=== PATIENT | female | born 2000 | race Hispanic/Latino ===

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

== ENCOUNTER 2022-02-07 15:15 | Emergency (ER) | payer MEDICAID ==
[~2022-02-07] VITALS: Ht 154.9 cm; Wt 81.6 kg
[2022-02-07 15:40] LABS: BASOPHILS % (AUTO) 0.4 % (0.0-5.0); HEMATOCRIT 38.1 % (36-48); LYMPHOCYTES % (AUTO) 27.6 % (21.0-51.0); MEAN CORPUSCULAR HEMOGLOBIN 25.4 pg (27.0-33.0); MEAN CORPUSCULAR HGB CONC 31.8 g/dL (32.0-36.0); MEAN CORPUSCULAR VOLUME 79.9 fL (80-100); MONOCYTES % (AUTO) 9.5 % (3.0-13.0); NEUTROPHILS % (AUTO) 61.1 % (40.0-77.0); PLATELET COUNT (AUTO) 353 K/uL (130-400); RED BLOOD CELL COUNT(AUTO) 4.77 MIL/uL (4.00-5.50); RED CELL DISTRIBUTION WIDTH 13.8 % (11.0-15.5); WHITE BLOOD COUNT (AUTO) 8.1 K/uL (4.8-10.8)
[2022-02-07 15:50] LABS: CREATININE 0.8 mg/dL (0.5-1.5); POTASSIUM 3.7 mmol/L (3.5-5.1)
[2022-02-07 15:54] LABS: ALBUMIN 3.6 g/dL (3.5-5.0); TOTAL PROTEIN, SERUM 7.9 g/dL (6.0-8.3)
[2022-02-07 17:54] LABS: APPEARANCE,URINE Clear (CLEAR); BILIRUBIN,URINE Moderate (NEGATIVE); COLOR,URINE Dark Yellow (YELLOW); GLUCOSE, URINE (UA) Negative (NEGATIVE); KETONES,URINE Trace mg/dL (NEGATIVE); LEUKOCYTE ESTERASE ,URINE Small (NEGATIVE); NITRATE,URINE Negative (NEGATIVE); OCCULT BLOOD,URINE Large (NEGATIVE); PROTEIN,URINE POS 1+ mg/dL (NEGATIVE)
[2022-02-07 17:56] LABS: AMPHET/METH SCREEN,URINE NEGATIVE (NEGATIVE); BARBITURATE SCREEN, URINE NEGATIVE (NEGATIVE); BENZODIAZEPINES SCREEN,URINE NEGATIVE (NEGATIVE); CANNABINOID SCREEN,URINE NEGATIVE (NEGATIVE); COCAINE SCREEN,URINE NEGATIVE (NEGATIVE); OPIATE SCREEN,URINE NEGATIVE (NEGATIVE); PHENCYCLIDINE SCREEN,URINE NEGATIVE (NEGATIVE)
[2022-02-07 17:57] LABS: HCG,QUAL RESULT NEGATIVE (NEGATIVE)
[2022-02-07] MEDS ORDERED: MAG/ALUM/SIMETH 30 ML UDCUP PO ONE (18:00)
[2022-02-07] MEDS ORDERED: FAMOTIDINE 20MG TAB PO ONE (18:00)
[2022-02-07] MEDS ORDERED: LIDOCAINE HCL 2% VISCOUS 15 ML UDCUP PO ONE (18:00)
[2022-02-07 18:05] VITALS: BP 119/72
[2022-02-07] MEDS ORDERED: OMEP20TA20 PO (18:41)
[2022-02-07] MEDS ORDERED: FAMO-136 PO (18:41)
[2022-02-07 18:42] LABS: BACTERIA,URINE Rare /HPF (None Seen); MUCUS,URINE Few LPF (None Seen); SQUAMOUS EPITHELIAL CELL,UR Few /HPF (0-2)
== END 2022-02-07 19:18 | disposition home or self-care (01) ==
LOC: EDH 15:15
DX: K29.70 Gastritis, unspecified, without bleeding (principal)
CPT/HCPCS: 36415; 80053; 80305; 81001; 81025; 83690; 85025

== ENCOUNTER 2022-04-28 20:57 | Emergency (ER) | payer MEDICAID ==
[~2022-04-28] VITALS: Ht 154.9 cm; Wt 53.1 kg
[~2022-04-28 20:57] MED LIST: FAMO-136 PO; OMEP20TA20 PO
[2022-04-28 21:28] LABS: APPEARANCE,URINE SL CLOUDY (CLEAR); BILIRUBIN,URINE SMALL (NEGATIVE); COLOR,URINE YELLOW (YELLOW); GLUCOSE, URINE (UA) NEGATIVE (NEGATIVE); KETONES,URINE 5 mg/dL (NEGATIVE); LEUKOCYTE ESTERASE ,URINE MODERATE (NEGATIVE); NITRATE,URINE NEGATIVE (NEGATIVE); OCCULT BLOOD,URINE NEGATIVE (NEGATIVE); PH,URINE 7.5 (5.0-8.0); PROTEIN,URINE TRACE mg/dL (NEGATIVE)
[2022-04-28 21:33] LABS: HCG,QUALITATIVE URINE NEGATIVE (NEGATIVE)
[2022-04-28 21:38] LABS: BASOPHILS % (AUTO) 0.4 % (0.0-5.0); EOSINOPHILS % (AUTO) 0.2 % (0.0-8.0); HEMATOCRIT 36.9 % (36-48); LYMPHOCYTES % (AUTO) 16.6 % (21.0-51.0); MEAN CORPUSCULAR HEMOGLOBIN 25.3 pg (27.0-33.0); MEAN CORPUSCULAR HGB CONC 31.7 g/dL (32.0-36.0); MEAN CORPUSCULAR VOLUME 79.7 fL (80-100); MONOCYTES % (AUTO) 4.6 % (3.0-13.0); NEUTROPHILS % (AUTO) 77.8 % (40.0-77.0); PLATELET COUNT (AUTO) 342 K/uL (130-400); RED BLOOD CELL COUNT(AUTO) 4.63 MIL/uL (4.00-5.50); RED CELL DISTRIBUTION WIDTH 14.6 % (11.0-15.5); WHITE BLOOD COUNT (AUTO) 10.5 K/uL (4.8-10.8)
[2022-04-28 21:44] LABS: BACTERIA,URINE Few /HPF (None Seen); RBC,URINE 0-1 /HPF (0-1); SQUAMOUS EPITHELIAL CELL,UR Few /HPF (0-2)
[2022-04-28 21:45] LABS: MUCUS,URINE Moderate LPF (None Seen)
[2022-04-28 21:53] LABS: ALBUMIN 3.6 g/dL (3.5-5.0); POTASSIUM 3.6 mmol/L (3.5-5.1); TOTAL PROTEIN, SERUM 7.7 g/dL (6.0-8.3)
[2022-04-28] MEDS ORDERED: LIDOCAINE HCL 1% 20 ML VIAL ONE (21:55)
[2022-04-28] MEDS ORDERED: FAMOTIDINE 20MG TAB PO ONE (22:00)
[2022-04-28] MEDS ORDERED: MAG/ALUM/SIMETH 30 ML UDCUP PO ONE (22:00)
[2022-04-28] MEDS ORDERED: DICYCLOMINE HCL 10 MG/5 ML ML PO ONE (22:00)
[2022-04-28] MEDS ORDERED: ONDANSETRON 4MG TABLET PO ONE (22:00)
[2022-04-28] MEDS ORDERED: LIDOCAINE HCL 2% VISCOUS 15 ML UDCUP PO ONE (22:00)
[2022-04-28] MEDS ORDERED: CEFTRIAXONE 1G VIAL IM ONE (22:00)
[2022-04-28 22:42] VITALS: BP 117/69
[2022-04-28] MEDS ORDERED: FAMO-136 PO (22:57)
[2022-04-28] MEDS ORDERED: DICY20TA2 PO (22:57)
== END 2022-04-28 23:07 | disposition home or self-care (01) ==
LOC: EDH 20:57
DX: K29.70 Gastritis, unspecified, without bleeding (principal); R79.89 Other specified abnormal findings of blood chemistry; Z79.899 Other long term (current) drug therapy
CPT/HCPCS: 99284; 76705; 80053; 83690; 85025; 87088; 81001; 81025; 36415; 96372; Q0162; J0696

== ENCOUNTER 2022-08-11 21:13 | Emergency (ER) | payer MEDICAID ==
[~2022-08-11] VITALS: Ht 154.9 cm; Wt 77.1 kg
[2022-08-11 21:54] LABS: APPEARANCE,URINE CLEAR (CLEAR); BILIRUBIN,URINE NEGATIVE (NEGATIVE); COLOR,URINE YELLOW (YELLOW); GLUCOSE, URINE (UA) NEGATIVE (NEGATIVE); KETONES,URINE NEGATIVE (NEGATIVE); LEUKOCYTE ESTERASE ,URINE 75 Leu/uL (NEGATIVE); NITRATE,URINE NEGATIVE (NEGATIVE); OCCULT BLOOD,URINE NEGATIVE (NEGATIVE); PROTEIN,URINE 20 mg/dL (NEGATIVE); UROBILINOGEN,URINE 0.2 mg/dL (0.2-1.0)
[2022-08-11 21:58] LABS: BACTERIA,URINE RARE /HPF (None Seen); MUCUS,URINE MOD LPF (None Seen); SQUAMOUS EPITHELIAL CELL,UR FEW /HPF (0-2)
[2022-08-11 22:01] LABS: BASOPHILS % (AUTO) 0.3 % (0.0-5.0); EOSINOPHILS % (AUTO) 0.2 % (0.0-8.0); HEMATOCRIT 36.9 % (36-48); LYMPHOCYTES % (AUTO) 15.7 % (21.0-51.0); MEAN CORPUSCULAR HEMOGLOBIN 25.4 pg (27.0-33.0); MEAN CORPUSCULAR HGB CONC 31.7 g/dL (32.0-36.0); MEAN CORPUSCULAR VOLUME 80.2 fL (80-100); MONOCYTES % (AUTO) 6.7 % (3.0-13.0); NEUTROPHILS % (AUTO) 76.8 % (40.0-77.0); PLATELET COUNT (AUTO) 359 K/uL (130-400); RED CELL DISTRIBUTION WIDTH 14.4 % (11.0-15.5); WHITE BLOOD COUNT (AUTO) 11.6 K/uL (4.8-10.8)
[2022-08-11 22:11] LABS: CREATININE 0.8 mg/dL (0.5-1.5); POTASSIUM 4.1 mmol/L (3.5-5.1)
[2022-08-11 22:15] LABS: ALBUMIN 3.8 g/dL (3.5-5.0); TOTAL PROTEIN, SERUM 7.9 g/dL (6.0-8.3)
[2022-08-11 23:00] VITALS: BP 124/85
[2022-08-11] MEDS ORDERED: ONDANSETRON 4MG INJ IVP ONE (23:00)
[2022-08-11] MEDS ORDERED: MORPHINE 2 MG SYG IVP ONE (23:00)
[2022-08-11] MEDS ORDERED: 0.9%NACL 1000ML 1,000 ML IV ONE (23:00)
[2022-08-11] MEDS ORDERED: 0.9%NACL 1000ML IV ONE (23:00)
[2022-08-12] MEDS ORDERED: FAMO-136 PO (00:01)
== END 2022-08-12 01:22 | disposition home or self-care (01) ==
LOC: EDH 21:13
DX: K76.0 Fatty (change of) liver, not elsewhere classified (principal); R94.5 Abnormal results of liver function studies; R16.0 Hepatomegaly, not elsewhere classified; K21.9 Gastro-esophageal reflux disease without esophagitis; Z87.19 Personal history of other diseases of the digestive system
CPT/HCPCS: 99285; 96374; 74150; 96361; 96375; 80053; 83690; 85025; 87088; 81001; 81025; 36415; J7030; J2405

== ENCOUNTER 2022-08-14 17:20 | Emergency (ER) | payer MEDICAID ==
[~2022-08-14] VITALS: Ht 160 cm; Wt 79.4 kg
[~2022-08-14 17:20] MED LIST changes: -OMEP20TA20 PO
[2022-08-14] MEDS ORDERED: ONDANSETRON 4MG INJ IVP ONE (18:30)
[2022-08-14] MEDS ORDERED: PANTOPRAZOLE 40 MG/VIAL IVP ONE (18:30)
[2022-08-14 18:36] LABS: BASOPHILS % (AUTO) 0.3 % (0.0-5.0); EOSINOPHILS % (AUTO) 0.4 % (0.0-8.0); HEMATOCRIT 35.9 % (36-48); LYMPHOCYTES % (AUTO) 21.6 % (21.0-51.0); MEAN CORPUSCULAR HEMOGLOBIN 25.5 pg (27.0-33.0); MEAN CORPUSCULAR HGB CONC 30.9 g/dL (32.0-36.0); MEAN CORPUSCULAR VOLUME 82.3 fL (80-100); MONOCYTES % (AUTO) 7.9 % (3.0-13.0); NEUTROPHILS % (AUTO) 69.5 % (40.0-77.0); PLATELET COUNT (AUTO) 315 K/uL (130-400); RED BLOOD CELL COUNT(AUTO) 4.36 MIL/uL (4.00-5.50); RED CELL DISTRIBUTION WIDTH 14.5 % (11.0-15.5); WHITE BLOOD COUNT (AUTO) 10.4 K/uL (4.8-10.8)
[2022-08-14 18:39] LABS: APPEARANCE,URINE CLEAR (CLEAR); BILIRUBIN,URINE NEGATIVE (NEGATIVE); COLOR,URINE LIGHT-YELLOW (YELLOW); GLUCOSE, URINE (UA) NEGATIVE (NEGATIVE); KETONES,URINE 10 mg/dL (NEGATIVE); LEUKOCYTE ESTERASE ,URINE NEGATIVE Leu/uL (NEGATIVE); NITRATE,URINE NEGATIVE (NEGATIVE); OCCULT BLOOD,URINE NEGATIVE (NEGATIVE); PROTEIN,URINE NEGATIVE (NEGATIVE); UROBILINOGEN,URINE 0.2 mg/dL (0.2-1.0)
[2022-08-14 18:42] LABS: HCG,QUALITATIVE URINE NEGATIVE (NEGATIVE)
[2022-08-14 18:48] LABS: CREATININE 0.9 mg/dL (0.5-1.5); POTASSIUM 3.4 mmol/L (3.5-5.1)
[2022-08-14 18:53] LABS: ALBUMIN 3.8 g/dL (3.5-5.0); TOTAL PROTEIN, SERUM 7.8 g/dL (6.0-8.3)
[2022-08-14 19:11] LABS: BACTERIA,URINE RARE /HPF (None Seen); MUCUS,URINE RARE LPF (None Seen); SQUAMOUS EPITHELIAL CELL,UR FEW /HPF (0-2)
[2022-08-14] MEDS ORDERED: OMEP40CA21 PO (21:27)
[2022-08-14] MEDS ORDERED: ONDA-104 PO (21:27)
[2022-08-14 21:34] VITALS: BP 94/64
== END 2022-08-14 21:38 | disposition home or self-care (01) ==
LOC: EDH 17:20
DX: K76.0 Fatty (change of) liver, not elsewhere classified (principal); K75.9 Inflammatory liver disease, unspecified; K21.9 Gastro-esophageal reflux disease without esophagitis; K80.20 Calculus of gallbladder without cholecystitis without obstruction; Z90.49 Acquired absence of other specified parts of digestive tract; Z90.89 Acquired absence of other organs
CPT/HCPCS: 99284; 96374; 76705; 96375; 80053; 83690; 85025; 81001; 81025; 36415; J2405; S0164; C9113

== ENCOUNTER 2023-03-27 16:08 | Emergency (ER) | payer MEDICAID ==
[~2023-03-27] VITALS: Ht 160 cm; Wt 79.4 kg
[~2023-03-27 16:08] MED LIST changes: +OMEP40CA21 PO; +ONDA-104 PO
[2023-03-27 16:57] VITALS: BP 116/68; PULSE 81; RESP 18; O2SAT 100
[2023-03-27 18:24] LABS: APPEARANCE,URINE CLEAR (CLEAR); BILIRUBIN,URINE NEGATIVE (NEGATIVE); COLOR,URINE LIGHT-YELLOW (YELLOW); GLUCOSE, URINE (UA) NEGATIVE (NEGATIVE); KETONES,URINE NEGATIVE (NEGATIVE); LEUKOCYTE ESTERASE ,URINE 250 Leu/uL (NEGATIVE); NITRATE,URINE NEGATIVE (NEGATIVE); OCCULT BLOOD,URINE NEGATIVE (NEGATIVE); PROTEIN,URINE 10 mg/dL (NEGATIVE); UROBILINOGEN,URINE 0.2 mg/dL (0.2-1.0)
[2023-03-27 18:27] LABS: HCG,QUALITATIVE URINE NEGATIVE (NEGATIVE)
[2023-03-27 18:36] LABS: RAPID GROUP A STREP negative (NEGATIVE)
[2023-03-27 18:42] LABS: SARS-CoV-2, RNA, NAAT NEGATIVE SARS CoV-2 (NEGATIVE)
[2023-03-27 18:46] LABS: INFLUENZA TYPE A Negative For Type A (NEGATIVE)
[2023-03-27 18:50] LABS: INFLUENZA TYPE B Positive For Type B (NEGATIVE)
[2023-03-27] MEDS ORDERED: OSEL75 PO (18:53)
[2023-03-27] MEDS ORDERED: IBUP-2070 PO (18:53)
[2023-03-27 18:55] LABS: ADD UA MICROSCOPIC YES
[2023-03-27 18:59] LABS: BACTERIA,URINE FEW /HPF (None Seen); MUCUS,URINE FEW LPF (None Seen); SQUAMOUS EPITHELIAL CELL,UR MOD /HPF (0-2)
[2023-03-27] MEDS ORDERED: CEPH500B PO (19:04)
== END 2023-03-27 19:27 | disposition home or self-care (01) ==
LOC: EDH 16:08
DX: J10.1 Influenza due to other identified influenza virus with other respiratory manifestations (principal); N39.0 Urinary tract infection, site not specified; Z90.49 Acquired absence of other specified parts of digestive tract; K21.9 Gastro-esophageal reflux disease without esophagitis; Z79.899 Other long term (current) drug therapy; Z98.890 Other specified postprocedural states; Z20.822 Contact with and (suspected) exposure to COVID-19
CPT/HCPCS: 99283; 87635; 87088; 87880; 87804 ×2; 81001; 81025; C9803

== ENCOUNTER 2023-03-30 13:57 | Emergency (ER) | payer MEDICAID ==
[~2023-03-30] VITALS: Ht 160 cm; Wt 79.4 kg
[~2023-03-30 13:57] MED LIST changes: +CEPH500B PO; +IBUP-2070 PO; +OSEL75 PO
[2023-03-30 13:58] VITALS: BP 168/71; PULSE 95; RESP 18
[2023-03-30 15:01] LABS: APPEARANCE,URINE CLOUDY (CLEAR); BILIRUBIN,URINE NEGATIVE (NEGATIVE); COLOR,URINE LIGHT-YELLOW (YELLOW); GLUCOSE, URINE (UA) NEGATIVE (NEGATIVE); KETONES,URINE NEGATIVE (NEGATIVE); LEUKOCYTE ESTERASE ,URINE 500 Leu/uL (NEGATIVE); NITRATE,URINE NEGATIVE (NEGATIVE); OCCULT BLOOD,URINE NEGATIVE (NEGATIVE); PH,URINE 5.5 (5.0-8.0); PROTEIN,URINE 10 mg/dL (NEGATIVE); UROBILINOGEN,URINE 0.2 mg/dL (0.2-1.0)
[2023-03-30 15:03] LABS: ADD UA MICROSCOPIC YES
[2023-03-30 15:04] LABS: HCG,QUALITATIVE URINE NEGATIVE (NEGATIVE)
[2023-03-30 15:09] LABS: BACTERIA,URINE RARE /HPF (None Seen); MUCUS,URINE RARE LPF (None Seen); SQUAMOUS EPITHELIAL CELL,UR MOD /HPF (0-2); WBC,URINE 26-50 /HPF (0-1)
[2023-03-30] MEDS ORDERED: ONDA4TAB10 PO (15:25)
== END 2023-03-30 15:29 | disposition home or self-care (01) ==
LOC: EDH 13:57
DX: N39.0 Urinary tract infection, site not specified (principal); J10.1 Influenza due to other identified influenza virus with other respiratory manifestations; R11.2 Nausea with vomiting, unspecified; K21.9 Gastro-esophageal reflux disease without esophagitis; Z90.49 Acquired absence of other specified parts of digestive tract
CPT/HCPCS: 81001; 81025

== ENCOUNTER 2023-05-02 15:06 | Emergency (ER) | payer MEDICAID ==
[~2023-05-02] VITALS: Ht 160 cm; Wt 77.1 kg
[~2023-05-02 15:06] MED LIST changes: +ONDA4TAB10 PO
[2023-05-02] MEDS ORDERED: KETOROLAC 30MG VIAL (30MG/ML) IM ONE (16:00)
[2023-05-02] MEDS ORDERED: IBUP-2070 PO (17:41)
[2023-05-02] MEDS ORDERED: CYCL5TAB PO (17:41)
[2023-05-02 18:02] VITALS: BP 116/72; PULSE 82; RESP 20; O2SAT 97
== END 2023-05-02 18:05 | disposition home or self-care (01) ==
LOC: EDH 15:06
DX: S46.912A Strain of unspecified muscle, fascia and tendon at shoulder and upper arm level, left arm, initial encounter (principal); K21.9 Gastro-esophageal reflux disease without esophagitis; Z90.49 Acquired absence of other specified parts of digestive tract; W01.0XXA Fall on same level from slipping, tripping and stumbling without subsequent striking against object, initial encounter; Y93.89 Activity, other specified; Y92.89 Other specified places as the place of occurrence of the external cause; Y99.8 Other external cause status
CPT/HCPCS: 99284; 81025; 73070; 73030; 96372; J1885